=== PATIENT | male | born 1955 | race Caucasian/White ===

== ENCOUNTER 2022-07-06 09:03 | Outpatient (CLI) | payer BC, SELFPAY | END 2022-07-06 09:04 | disposition home or self-care (01) | PROVIDERS: Visit Provider Emergency Medicine | DX: Z00.00 Encounter for general adult medical examination without abnormal findings (principal); I10 Essential (primary) hypertension; E78.5 Hyperlipidemia, unspecified; Z12.5 Encounter for screening for malignant neoplasm of prostate | CPT/HCPCS: 80053; 80061; 84153 ==

== ENCOUNTER 2023-12-27 11:22 | Outpatient (CLI) | payer BC, SELFPAY | END 2023-12-27 11:23 | disposition home or self-care (01) | LOC: NFLDREF 12-28 12:57 | PROVIDERS: PCP Emergency Medicine; Referring Provider Emergency Medicine; Visit Provider Emergency Medicine | DX: I10 Essential (primary) hypertension (principal); E78.5 Hyperlipidemia, unspecified; Z12.5 Encounter for screening for malignant neoplasm of prostate | CPT/HCPCS: 80053; 80061; G0103 ==

== ENCOUNTER 2024-12-31 10:30 | Outpatient (CLI) | payer BC, SELFPAY | END 2024-12-31 10:31 | disposition home or self-care (01) | PROVIDERS: PCP Emergency Medicine; Visit Provider Family Medicine | DX: Z12.5 Encounter for screening for malignant neoplasm of prostate (principal); Z13.1 Encounter for screening for diabetes mellitus; Z13.21 Encounter for screening for nutritional disorder; E78.2 Mixed hyperlipidemia; Z13.29 Encounter for screening for other suspected endocrine disorder | CPT/HCPCS: 80048; 80061; 82607; 84443; G0103 ==